=== PATIENT | male | born 1975 | race Caucasian/White ===

== ENCOUNTER 2018-03-27 11:29 | Emergency (ER) | payer OTHER ==
[2018-03-27 11:39] VITALS: TEMP 96.4
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
[2018-03-27 12:45] VITALS: BP 170/102; PULSE 80; RESP 18
[2018-03-27] MEDS ORDERED: cloNIDine HCL 0.1 MG TAB PO STA (12:48)
== END 2018-03-27 13:14 | disposition home or self-care (01) ==
LOC: EC 11:29
DX: M54.2 Cervicalgia (principal); M25.512 Pain in left shoulder; J45.909 Unspecified asthma, uncomplicated; Z79.899 Other long term (current) drug therapy; Z88.6 Allergy status to analgesic agent; Z91.018 Allergy to other foods; V89.2XXA Person injured in unspecified motor-vehicle accident, traffic, initial encounter; Y92.410 Unspecified street and highway as the place of occurrence of the external cause
CPT/HCPCS: 72050; 99284

== ENCOUNTER → 2018-05-21 | Outpatient (CLI) | payer OTHER ==
--- NOTE | 2018-05-21 09:53 | XR ---
EXAMINATION TYPE: XR chest 2V DATE OF EXAM: 05/21/2018 COMPARISON: 04/25/15 HISTORY: Chest pain TECHNIQUE: Single frontal view of the chest is obtained. FINDINGS: There is no focal air space opacity, pleural effusion, or pneumothorax seen. The cardiac silhouette size is within normal limits. The osseous structures are intact. IMPRESSION: 1. No acute process.
== END | disposition home or self-care (01) ==
LOC: RADXRMAIN 09:17
PROVIDERS: ATTEND Family Medicine
DX: Z11.1 Encounter for screening for respiratory tuberculosis (principal)
CPT/HCPCS: 71046

== ENCOUNTER 2019-04-05 21:52 | Emergency (ER) | payer OTHER ==
[2019-04-05 21:57] VITALS: RESP 18
[2019-04-05] MEDS ORDERED: DIAZEPAM 5 MG/ML 2 ML INJ IM STA (22:46)
[2019-04-05] MEDS ORDERED: ACET/COD 300 MG/30 MG STARTER PACK 6 TAB BTL PO STA (22:48)
[2019-04-05] MEDS ORDERED: LIDOCAINE 5% PATCH TOPICAL STA (22:49)
--- NOTE | 2019-04-05 23:50 | ED ---
Back Pain HPI - General Source: patient Limitations: no limitations <Bhavin Ramirez - Last Filed: 04/09/19 13:40> <Joann Villalta - Last Filed: 04/11/19 05:43> - General Chief Complaint: Back Pain/Injury Stated Complaint: Back Pain Time Seen by Provider: 04/05/19 22:17 - History of Present Illness Initial Comments: Patient is a 44-year-old male presents emergency Department with lower back pain. Patient reports the pain started earlier today while he was a work. Patient reports the pain is acute and rates it a 7. Patient states the pain starts in the right lumbosacral region and radiates along the posterior aspect of the right leg to the popliteal region. Patient reports the pain is alleviated and sitting position exacerbated with any movement. Patient denies urinary incontinence or saddle paresthesias. Patient reports a previous history of back pain but this time is more severe. Patient denies taking medication to alleviate the pain. Patient denies syncope, lightheadedness, dizziness, nausea, vomiting, abdominal pain, chest pain or chest tightness. (Bhavin Ramirez) - Related Data Home Medications Medication Instructions Recorded Confirmed Azelastine HCl [Astepro] 1 spray EA NOSTRIL BID 07/17/16 07/31/16 Acetaminophen [Tylenol] 325 - 650 mg PO ONCE PRN 07/18/16 07/31/16 Previous Rx's Medication Instructions Recorded Acetaminophen [Tylenol] 500 mg PO Q4-6H PRN #20 tab 03/27/18 Lisinopril [Zestril] 5 mg PO DAILY #30 tab 03/27/18 Cyclobenzaprine [Flexeril] 10 mg PO TID PRN #15 tab 04/05/19 Allergies Allergy/AdvReac Type Severity Reaction Status Date / Time ibuprofen Allergy Rash/Hives, Verified 04/05/19 21:57 Tongue Swelling tomato Allergy Rash/Hives, Verified 04/05/19 21:57 Tongue Swelling Review of Systems ROS Other: All systems not noted in ROS Statement are negative. <Bhavin Ramirez - Last Filed: 04/09/19 13:40> ROS Other: All systems not noted in ROS Statement are negative. <Joann Villalta - Last Filed: 04/11/19 05:43> ROS Statement: Those systems with pertinent positive or pertinent negative responses have been documented in the HPI. Past Medical History Past Medical History: Asthma Additional Past Medical History / Comment(s): TROUBLE SWALLOWING History of Any Multi-Drug Resistant Organisms: None Reported Past Surgical History: Appendectomy, Hernia Repair Additional Past Surgical History / Comment(s): TESTICLE SURGERY, Past Anesthesia/Blood Transfusion Reactions: Postoperative Nausea & Vomiting (PONV) Past Psychological History: No Psychological Hx Reported Smoking Status: Never smoker Past Alcohol Use History: None Reported Past Drug Use History: None Reported - Past Family History Mother Family Medical History: Cancer Additional Family Medical History / Comment(s): "BOWEL CANCER" Father Family Medical History: No Reported History <Bhavin Ramirez Last Filed: 04/09/19 13:40> General Exam Limitations: no limitations General appearance: alert, in no apparent distress Head exam: Present: atraumatic, normocephalic, normal inspection Eye exam: Present: normal appearance, PERRL, EOMI Pupils: Present: normal accommodation ENT exam: Present: normal exam, mucous membranes moist, TM's normal bilaterally, normal external ear exam Neck exam: Present: normal inspection, full ROM Respiratory exam: Present: normal lung sounds bilaterally Cardiovascular Exam: Present: regular rate, normal rhythm, normal heart sounds GI/Abdominal exam: Present: soft. Absent: tenderness, guarding Extremities exam: Present: normal inspection, full ROM Back exam: Present: normal inspection, tenderness (Lumbosacral region), muscle spasm, paraspinal tenderness (Right-sided), other (Positive straight leg raise test.). Absent: full ROM (Limited due to pain), CVA tenderness (R), CVA tenderness (L) Neurological exam: Present: alert, oriented X3 Psychiatric exam: Present: normal affect, normal mood Skin exam: Present: warm, intact, normal color <Bhavin Ramirez Last Filed: 04/09/19 13:40> Course Vital Signs 04/05/19 04/06/19 21:55 01:24 Temperature 98.3 F 97.8 F Pulse Rate 110 H 79 Respiratory 18 18 Rate Blood Pressure 154/87 122/80 O2 Sat by Pulse 95 98 Oximetry Medical Decision Making <Bhavin Ramirez Last Filed: 04/09/19 13:40> <Joann Villalta - Last Filed: 04/11/19 05:43> - Medical Decision Making Patient is a 44-year-old male presents emergency Department with low back pain. Initially the patient was given a Lidoderm patch and 5 g of Valium which helped decrease the pain and increased the range of motion. On reevaluation patient reports the pain and spasms have slightly increased again. Patient was given a Tylenol 3 starter pack, another 5 mg of Valium. Patient will be discharged with Flexeril starter pack and a prescription for Flexeril. Patient advised not to drive or operate heavy machinery when taking the medication. Patient does have a ride home from the ED. Patient reports that he feels better and has increased range of motion. Patient reports that he is ready go home. At this point I suspect patient to have acute mechanical low back pain that could best be treated in outpatient setting. No cauda equina signs. Patient advised to follow-up with orthopedics. Strict return parameters were thoroughly discussed with patient and his were understanding and agreeable. Case discussed with physician. (Bhavin Ramirez) I was available for consultation in the emergency department. The history and physical exam were done by the midlevel provider. I was consulted for this patient's care. I reviewed the case with the midlevel provider and based on their presentation of the patient, I agree with the assessment, medical decision making and plan of care as documented. Chart was dictated using [employer] dictation software. Attempts were made to correct any dictation errors however some typographical errors may persist. (Joann Villalta) Disposition Is patient prescribed a controlled substance at d/c from ED?: No Time of Disposition: 23:49 <Bhavin Ramirez - Last Filed: 04/09/19 13:40> <Joann Villalta - Last Filed: 04/11/19 05:43> Clinical Impression: Mechanical back pain Disposition: HOME SELF-CARE Condition: Stable Instructions (If sedation given, give patient instructions): Acute Low Back Pain (ED) Additional Instructions: Please follow-up with orthopedics. Please return to emergency department if symptoms worsen. Please take prescribed medication as directed. Prescriptions: Cyclobenzaprine [Flexeril] 10 mg PO TID PRN #15 tab PRN Reason: Muscle Spasm Referrals: Brandon Francis MD [Primary Care Provider] - 1-2 days Jeremy Harper MD [Medical Doctor] - 1-2 days
[2019-04-06] MEDS ORDERED: DIAZEPAM 5 MG/ML 2 ML INJ IVP STA (00:55)
[2019-04-06] MEDS ORDERED: CYCLOBENZAPRINE 10MG STARTER 3 TAB BTL PO STA (01:02)
[2019-04-06 01:26] VITALS: BP 122/80; PULSE 79; TEMP 97.8
== END 2019-04-06 01:24 | disposition home or self-care (01) ==
LOC: EC 21:52
DX: M62.830 Muscle spasm of back (principal); M79.604 Pain in right leg; Z88.6 Allergy status to analgesic agent; Z91.018 Allergy to other foods; Z79.899 Other long term (current) drug therapy
CPT/HCPCS: 99283; 96374; 96372; J3360 ×2

== ENCOUNTER 2020-11-16 08:36 | Observation (INO) | payer OTHER ==
--- NOTE | 2020-11-16 09:06 | ED ---
Chest Pain HPI - General Chief Complaint: Chest Pain Stated Complaint: chest pain Time Seen by Provider: 11/16/20 08:47 Source: patient Mode of arrival: wheelchair Limitations: no limitations - History of Present Illness Initial Comments: Patient is a 45-year-old male with past medical history of asthma who presents to the emergency department with reported chest pain. Patient reports that the pain started last night. Located over the right side of his chest with radiation into his right arm. Admits to nausea without vomiting. Also admits to mild shortness of breath. He has had a cough with some hemoptysis. Denies history of DVT or PE. No ripping or tearing station his back. Denies any new numbness or tingling in his upper extremities. No previous history of cardiac disease. 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 No fevers or chills. No other alleviating, precipitating or modifying factors - Related Data Home Medications Medication Instructions Recorded Confirmed guaiFENesin [guaiFENesin Oral 400 mg PO Q6H PRN 11/16/20 11/16/20 Solution] Previous Rx's Medication Instructions Recorded Celecoxib [CeleBREX] 100 mg PO BID #30 cap 11/17/20 Allergies Allergy/AdvReac Type Severity Reaction Status Date / Time ibuprofen Allergy Rash/Hives, Verified 11/16/20 10:03 Tongue Swelling tomato Allergy Rash/Hives, Verified 11/16/20 10:03 Tongue Swelling Review of Systems ROS Statement: Those systems with pertinent positive or pertinent negative responses have been documented in the HPI. ROS Other: All systems not noted in ROS Statement are negative. EKG Findings - EKG Comments: EKG Findings:: EKG demonstrates sinus rhythm with ventricular rate of 83. ME interval 124. QRS 86. QTC of 420. No acute ST segment elevations or depressions Past Medical History Past Medical History: Asthma Additional Past Medical History / Comment(s): TROUBLE SWALLOWING History of Any Multi-Drug Resistant Organisms: None Reported Past Surgical History: Appendectomy, Hernia Repair Additional Past Surgical History / Comment(s): TESTICLE SURGERY, Past Anesthesia/Blood Transfusion Reactions: Postoperative Nausea & Vomiting (PONV) Past Psychological History: No Psychological Hx Reported Smoking Status: Never smoker Past Alcohol Use History: None Reported Past Drug Use History: None Reported - Past Family History Mother Family Medical History: Cancer Additional Family Medical History / Comment(s): "BOWEL CANCER" Father Family Medical History: No Reported History General Exam Limitations: no limitations General appearance: alert, in no apparent distress Head exam: Present: atraumatic, normocephalic, normal inspection Eye exam: Present: normal appearance, PERRL, EOMI. Absent: scleral icterus, conjunctival injection, periorbital swelling ENT exam: Present: normal exam, mucous membranes moist Neck exam: Present: normal inspection. Absent: tenderness, meningismus, lymphadenopathy Respiratory exam: Present: normal lung sounds bilaterally. Absent: respiratory distress, wheezes, rales, rhonchi, stridor Cardiovascular Exam: Present: regular rate, normal rhythm, normal heart sounds. Absent: systolic murmur, diastolic murmur, rubs, gallop, clicks GI/Abdominal exam: Present: soft, normal bowel sounds. Absent: distended, tenderness, guarding, rebound, rigid Extremities exam: Present: normal inspection, full ROM, normal capillary refill. Absent: tenderness, pedal edema, joint swelling, calf tenderness Back exam: Present: normal inspection Neurological exam: Present: alert, oriented X3, CN II-XII intact Psychiatric exam: Present: normal affect, normal mood Skin exam: Present: warm, dry, intact, normal color. Absent: rash Course Vital Signs 11/16/20 11/16/20 11/16/20 08:40 11:00 12:00 Temperature 98.5 F Pulse Rate 94 77 71 Respiratory 18 18 18 Rate Blood Pressure 145/89 142/92 141/93 O2 Sat by Pulse 98 98 99 Oximetry 11/16/20 11/16/20 13:00 14:00 Temperature Pulse Rate 75 82 Respiratory 18 18 Rate Blood Pressure 140/92 O2 Sat by Pulse 98 99 Oximetry Chest Pain MDM - MDM Upon arrival patient is placed into room 7. There are history and physical exam is performed. 12-lead EKG was performed. Laboratory studies were conducted. Patient went for chest x-ray. Laboratory studies are reviewed and demonstrate negative d-dimer. Troponin less than 0.012. Chest x-ray demonstrates no acute cardiopulmonary process. Results are discussed with the patient. Due to the hemoptysis I did offer a CT of the patient's chest however patient wants to hold off at this time. I did recommend hospital physician with cardiology consultation and to trend the patient's troponins for which he did agree to. Spoke with Dr. Francis who agreed to admit the patient. The patient is currently awaiting a bed on the floor. Disposition Clinical Impression: Chest pain, Hemoptysis Disposition: ADMITTED IP TO THIS [facility] Condition: Stable Is patient prescribed a controlled substance at d/c from ED?: No Decision to Admit Reason: Admit from EC Decision Date: 11/16/20 Decision Time: 10:46
[2020-11-16 09:21] LABS: Basophils % (A) 1 %; Eosinophils # (A) 0.1 k/uL (0-0.7); Eosinophils % (A) 2 %; HCT 47.3 % (39.0-53.0); HGB 15.9 gm/dL (13.0-17.5); Lymphocytes # (A) 1.4 k/uL (1.0-4.8); Lymphocytes % (A) 30 %; MCH 28.4 pg (25.0-35.0); MCHC 33.5 g/dL (31.0-37.0); MCV 84.8 fL (80.0-100.0); Mean Platelet Volume 7.6; Monocytes # (A) 0.3 k/uL (0-1.0); Monocytes % (A) 7 %; Neutrophils # (A) 2.6 k/uL (1.3-7.7); Neutrophils % (A) 57 %; Platelet Count 219 k/uL (150-450); RBC 5.58 m/uL (4.30-5.90); RDW 13.6 % (11.5-15.5); WBC 4.6 k/uL (3.8-10.6)
[2020-11-16] MEDS ORDERED: ACETAMINOPHEN TAB 325 MG TAB PO STA (09:21)
[2020-11-16 09:27] LABS: ALT 27 U/L (4-49); AST 23 U/L (17-59); African American GFR (CKD) >90 (>60 ml/min/1.73 sqM); Albumin 4.3 g/dL (3.5-5.0); Alkaline Phosphatase 48 U/L (38-126); Anion Gap 10 mmol/L; Blood Urea Nitrogen 11 mg/dL (9-20); Calcium 9.2 mg/dL (8.4-10.2); Carbon Dioxide 25 mmol/L (22-30); Chloride 102 mmol/L (98-107); Glucose 131 mg/dL (74-99); Lipase 65 U/L (23-300); Magnesium 1.9 mg/dL (1.6-2.3); Non-African American GFR(CKD) >90 (>60 ml/min/1.73 sqM); Sodium 137 mmol/L (137-145); Total Bilirubin 0.7 mg/dL (0.2-1.3); Total Protein 7.5 g/dL (6.3-8.2)
[2020-11-16 09:32] LABS: Partial Thromboplastin Time 23.5 sec (22.0-30.0); Prothrombin Time 10.3 sec (9.0-12.0)
--- NOTE | 2020-11-16 09:41 | XR ---
EXAMINATION TYPE: XR chest 2V DATE OF EXAM: 11/16/2020 COMPARISON: Chest x-ray 05/21/2018 HISTORY: Chest pain TECHNIQUE: Frontal and lateral views of the chest are obtained. FINDINGS: There is no focal air space opacity, pleural effusion, or pneumothorax seen. The cardiac silhouette size is within normal limits. There are overlying cardiac leads. There is eventration of right hemidiaphragm. The osseous structures are intact, stable old left clavicular fracture. IMPRESSION: No acute cardiopulmonary process.
[2020-11-16 09:44] LABS: D-Dimer <0.17 mg/L FEU (<0.60)
[2020-11-16] MEDS ORDERED: ASPIRIN 81 MG PO STA (10:45)
[2020-11-16] MEDS ORDERED: NALOXONE 0.4 MG/ML 1 ML VIAL IV PRN (10:46)
[2020-11-16] MEDS: SODIUM CHLORIDE 0.9% 1,000 ML IV SCH ×2 (11:14→19:55)
--- NOTE | 2020-11-16 13:16 | P.CRDCN ---
History of Present Illness History of present illness: HISTORY OF PRESENTING ILLNESS This is a pleasant 45-year-old male with no significant past medical history. 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 We have been asked to see in consultation for chest pain. He states yesterday he was using a randy to move a washer and dryer when he developed a discomfort in the midsternal region. The pain was described as achy. Later that night he developed a cough and is bringing up blood-tinged sputum. He described it as being "blood". He continues to have discomfort in his chest that is reproducible with deep inspiration and on palpation. DIAGNOSTICS EKG reveals sinus mechanism with no acute ST or T wave abnormalities noted. Chest xray negative for an acute cardiopulmonary process. Laboratory reviewed, CBC unremarkable, d-dimer negative, sodium 137, potassium 4.0, creatinine 0.83, magnesium 1.9, troponin negative 1. He takes no daily cardiac medications. REVIEW OF SYSTEMS At the time of my exam: CONSTITUTIONAL: Denies fever or chills. CARDIOVASCULAR: Complains of chest pain with movement or breathing. Denies shortness of breath, orthopnea, PND or palpitations. RESPIRATORY: Complains of cough. GASTROINTESTINAL: Denies abdominal pain, diarrhea, constipation, nausea or vomiting. MUSCULOSKELETAL: Denies myalgias. NEUROLOGIC: Denies numbness, tingling, headacbe or weakness. ENDOCRINE: Denies fatigue, weight change, polydipsia or polyurina. GENITOURINARY: Denies burning, hematuria or urgency with micturation. HEMATOLOGIC: Denies history of anemia or bleeding. PHYSICAL EXAMINATION Blood pressure 141/93 heart rate 71 afebrile and maintaining oxygen saturation on room air. CONSTITUTIONAL: No apparent distress. HEENT: Head is normocephalic. Pupils are equal, round. Sclerae anicteric. Mucous membranes of the mouth are moist. No JVD. No carotid bruit. CHEST EXAMINATION: Lungs are clear to auscultation. Midsternal chest wall tenderness is noted on palpation and with deep breathing. HEART EXAMINATION: Regular rate and rhythm. S1, S2 heard. No murmurs, gallops or rub. ABDOMEN: Soft, nontender. Positive bowel sounds. EXTREMITIES: 2+ peripheral pulses, no lower extremity edema and no calf tenderness. NEUROLOGIC EXAMINATION: Patient is awake, alert and oriented x3. ASSESSMENT Chest pain, reproducible PLAN Pain is reproducible and exam, seems to be possibly related to musculoskeletal strain from moving washer and dryer yesterday. Obtain 2-D echocardiogram and Doppler study to assess cardiac structure and function. Thank you kindly for this consultation. Nurse Practitioner note has been reviewed, I agree with a documented findings and plan of care. Patient was seen and examined. Past Medical History Past Medical History: Asthma Additional Past Medical History / Comment(s): TROUBLE SWALLOWING History of Any Multi-Drug Resistant Organisms: None Reported Past Surgical History: Appendectomy, Hernia Repair Additional Past Surgical History / Comment(s): TESTICLE SURGERY, Past Anesthesia/Blood Transfusion Reactions: Postoperative Nausea & Vomiting (PONV) Past Psychological History: No Psychological Hx Reported Smoking Status: Never smoker Past Alcohol Use History: None Reported Past Drug Use History: None Reported - Past Family History Mother Family Medical History: Cancer Additional Family Medical History / Comment(s): "BOWEL CANCER" Father Family Medical History: No Reported History Medications and Allergies Home Medications Medication Instructions Recorded Confirmed Type guaiFENesin [guaiFENesin Oral 400 mg PO Q6H PRN 11/16/20 11/16/20 History Solution] Allergies Allergy/AdvReac Type Severity Reaction Status Date / Time ibuprofen Allergy Rash/Hives, Verified 11/16/20 10:03 Tongue Swelling tomato Allergy Rash/Hives, Verified 11/16/20 10:03 Tongue Swelling Physical Exam Vitals: Vital Signs Temp Pulse Resp BP Pulse Ox 11/16/20 12:00 71 18 141/93 99 11/16/20 11:00 77 18 142/92 98 11/16/20 08:40 98.5 F 94 18 145/89 98 Intake and Output 11/15/20 11/16/20 11/16/20 22:59 06:59 14:59 Other: Weight 127.006 kg Results 11/16/20 08:53 11/16/20 08:53 Cardiac Enzymes 11/16/20 11/16/20 Range/Units 08:53 08:53 AST 23 (17-59) U/L Troponin I <0.012 (0.000-0.034) ng/mL Coagulation 11/16/20 Range/Units 08:53 PT 10.3 (9.0-12.0) sec APTT 23.5 (22.0-30.0) sec CBC 11/16/20 Range/Units 08:53 WBC 4.6 (3.8-10.6) k/uL RBC 5.58 (4.30-5.90) m/uL Hgb 15.9 (13.0-17.5) gm/dL Hct 47.3 (39.0-53.0) % Plt Count 219 (150-450) k/uL Comprehensive Metabolic Panel 11/16/20 Range/Units 08:53 Sodium 137 (137-145) mmol/L Potassium 4.0 (3.5-5.1) mmol/L Chloride 102 (98-107) mmol/L Carbon Dioxide 25 (22-30) mmol/L BUN 11 (9-20) mg/dL Creatinine 0.83 (0.66-1.25) mg/dL Glucose 131 H (74-99) mg/dL Calcium 9.2 (8.4-10.2) mg/dL AST 23 (17-59) U/L ALT 27 (4-49) U/L Alkaline Phosphatase 48 (38-126) U/L Total Protein 7.5 (6.3-8.2) g/dL Albumin 4.3 (3.5-5.0) g/dL Current Medications Generic Name Dose Route Start Last Admin Trade Name Freq PRN Reason Stop Dose Admin Sodium Chloride 1,000 mls @ 100 mls/hr 11/16/20 11:00 11/16/20 11:14 Saline 0.9% IV 100 mls/hr .Q10H PRASANTH Administration Naloxone HCl 0.2 mg 11/16/20 10:46 Naloxone 0.4 Mg/Ml 1 Ml Vial IV Q2M PRN Opioid Reversal Intake and Output 11/15/20 11/16/20 11/16/20 22:59 06:59 14:59 Other: Weight 127.006 kg Patient Weight 11/17/20 06:59 Weight 127.006 kg 11/16/20 08:53 11/16/20 08:53
[2020-11-16] MEDS ORDERED: MORPHINE SULFATE 2 MG/ML SYRINGE IM PRN (19:43)
[2020-11-16] MEDS ORDERED: NITROGLYCERIN SL TABS 0.4 MG TAB SUBLINGUAL PRN (19:45)
[2020-11-16] MEDS: traMADol 50 MG TAB PO PRN (19:54)
[2020-11-17] MEDS: traMADol 50 MG TAB PO PRN (06:10)
[2020-11-17] MEDS: SODIUM CHLORIDE 0.9% 1,000 ML IV SCH (06:10)
--- NOTE | 2020-11-17 08:30 | P.HPIM ---
History of Present Illness H&P Date: 11/17/20 Chief Complaint: Chest pain. This is a history of physical and a 45-year-old white male with no previous history of CAD who complained of substernal chest pressure. There is radiation to the right shoulder but no diaphoresis. No nausea stated. Cardiology has been consulted enzymatic elevation is not found echocardiogram is pending. No family history of premature heart disease Review of Systems Constitutional: Denies chills, Denies fever Eyes: denies blurred vision, denies pain Ears, nose, mouth and throat: Denies headache, Denies sore throat Cardiovascular: Reports chest pain, Denies leg edema, Denies shortness of breath Respiratory: Denies cough Musculoskeletal: Denies myalgias Past Medical History Past Medical History: Asthma Additional Past Medical History / Comment(s): TROUBLE SWALLOWING History of Any Multi-Drug Resistant Organisms: None Reported Past Surgical History: Appendectomy, Hernia Repair Additional Past Surgical History / Comment(s): TESTICLE SURGERY, Past Anesthesia/Blood Transfusion Reactions: Postoperative Nausea & Vomiting (PONV) Past Psychological History: No Psychological Hx Reported Smoking Status: Never smoker Past Alcohol Use History: None Reported Additional Past Alcohol Use History / Comment(s): QUIT DRINKING ALCOHOL IN 2004- ALCOHOLISM Past Drug Use History: None Reported - Past Family History Mother Family Medical History: Cancer Additional Family Medical History / Comment(s): "BOWEL CANCER" Father Family Medical History: No Reported History Medications and Allergies Home Medications Medication Instructions Recorded Confirmed Type guaiFENesin [guaiFENesin Oral 400 mg PO Q6H PRN 11/16/20 11/16/20 History Solution] Allergies Allergy/AdvReac Type Severity Reaction Status Date / Time ibuprofen Allergy Rash/Hives, Verified 11/16/20 10:03 Tongue Swelling tomato Allergy Rash/Hives, Verified 11/16/20 10:03 Tongue Swelling Physical Exam Vitals: Vital Signs Temp Pulse Pulse Resp BP BP Pulse Ox 11/17/20 02:31 98.1 F 68 15 127/82 96 11/16/20 19:17 98.4 F 83 16 149/91 97 11/16/20 17:10 98.4 F 79 17 158/79 97 11/16/20 14:00 82 18 99 11/16/20 13:00 75 18 140/92 98 11/16/20 12:00 71 18 141/93 99 02/11/21 11:00 77 18 142/92 98 11/16/20 08:40 98.5 F 94 18 145/89 98 Intake and Output 11/16/20 11/17/20 11/17/20 22:59 06:59 14:59 Intake Total 540 Balance 540 Intake: Oral 540 Other: # Voids 3 Weight 127.006 kg - Constitutional General appearance: no acute distress - EENT Eyes: EOMI - Neck Neck: no lymphadenopathy - Respiratory Respiratory: bilateral: CTA - Gastrointestinal General gastrointestinal: no organomegaly, soft, no tenderness - Psychiatric Psychiatric: A&O x's 3, appropriate affect, intact judgment & insight Results CBC & Chem 7: 11/16/20 08:53 11/16/20 08:53 Labs: Abnormal Lab Results - Last 24 Hours (Table) 11/16/20 Range/Units 08:53 Glucose 131 H (74-99) mg/dL Thrombosis Risk Factor Assmnt - Choose All That Apply Each Factor Represents 1 point: Age 41-60 years Other Risk Factors: No Other congenital or acquired thrombophilia - If yes, enter type in comment: No Thrombosis Risk Factor Assessment Total Risk Factor Score: 1 Thrombosis Risk Factor Assessment Level: Low Risk Assessment and Plan (1) Chest pain Current Visit: Yes Status: Acute Code(s): R07.9 - CHEST PAIN, UNSPECIFIED SNOMED Code(s): 89521367 Plan: Rule out myocardial infarction. Appreciate cardiology input. If testing today is negative, anticipate DC to home. See orders otherwise.
[2020-11-17 09:18] LABS: Basophils # (A) 0.05 X 10*3/uL (0.00-0.10); Basophils % (A) 1.1 %; Eosinophils % (A) 2.2 %; HCT 45.7 % (39.6-50.0); HGB 14.8 g/dL (13.0-17.0); Lymphocytes # (A) 1.91 X 10*3/uL (0.90-5.00); Lymphocytes % (A) 42.6 %; MCH 28.4 pg (27.0-32.0); MCHC 32.4 g/dL (32.0-37.0); MCV 87.5 fL (80.0-97.0); Mean Platelet Volume 10.6 fL (9.5-12.2); Monocytes # (A) 0.43 X 10*3/uL (0.20-1.00); Monocytes % (A) 9.6 %; Neutrophils # (A) 1.98 X 10*3/uL (1.80-7.70); Neutrophils % (A) 44.3 %; Platelet Count 207 X 10*3/uL (140-440); RBC 5.22 X 10*6/uL (4.40-5.60); RDW 13.2 % (11.5-14.5); WBC 4.48 X 10*3/uL (4.50-10.00)
[2020-11-17 09:37] VITALS: BP 128/86; PULSE 70; RESP 16; TEMP 98.2
[2020-11-17] MEDS ORDERED: ACETAMINOPHEN TAB 325 MG TAB PO STA (09:41)
--- NOTE | 2020-11-17 10:32 | ECHOF ---
Referral Reason:cp MEASUREMENTS -------- HEIGHT: 182.9 cm WEIGHT: 127.0 kg BP: 127/82 RVIDd: 3.4 cm (< 3.3) IVSd: 1.4 cm (0.6 - 1.1) LVIDd: 4.6 cm (3.9 - 5.3) LVPWd: 1.4 cm (0.6 - 1.1) IVSs: 1.7 cm LVIDs: 3.4 cm LVPWs: 1.6 cm LAESV Index (A-L): 21.83 ml/m Ao Diam: 3.0 cm (2.0 - 3.7) AV Cusp: 1.9 cm (1.5 - 2.6) LA Diam: 4.4 cm (2.7 - 3.8) MV EXCURSION: 21.866 mm (> 18.000) MV EF SLOPE: 113 mm/s (70 - 150) EPSS: 0.7 cm MV E Sadi: 0.62 m/s MV DecT: 184 ms MV A Sadi: 0.66 m/s MV E/A Ratio: 0.93 RAP: 5.00 mmHg RVSP: 19.32 mmHg FINDINGS -------- Sinus rhythm. This was a technically adequate study. The left ventricular size is normal. There is mild concentric left ventricular hypertrophy. Overa ll left ventricular systolic function is normal with, an EF between 55 - 60 %. The diastolic fillin g pattern is normal for the age of the patient 7.62. The right ventricle is normal in size. Normal LA size by volume 22+/-6 ml/m2. The right atrial size is normal. The aortic valve is trileaflet, and appears structurally normal. No aortic stenosis or regurgitation. The mitral valve is normal. There is trace to mild mitral regurgitation. The tricuspid valve appears structurally normal. Trace tricuspid regurgitation present. Right royce tricular systolic pressure is normal at < 35 mmHg. There is no pulmonic regurgitation present. The aortic root size is normal. There is no pericardial effusion. CONCLUSIONS -------- 1. There is mild concentric left ventricular hypertrophy. 2. Overall left ventricular systolic function is normal with, an EF between 55 - 60 %. 3. Normal LA size by volume 22+/-6 ml/m2. 4. The aortic valve is trileaflet, and appears structurally normal. No aortic stenosis or regurgitati on. 5. There is trace to mild mitral regurgitation. 6. Trace tricuspid regurgitation present. 7. There is no pericardial effusion. CAR PICK UP DRIVER: Cate Jimenes RDCS
--- NOTE | 2020-11-17 10:54 | P.PN ---
Subjective HISTORY OF PRESENTING ILLNESS This is a pleasant 45-year-old male with no significant past medical history. He denies prior history of coronary artery disease and does not follow in the office with a assistant hall director. He is seen and examined resting comfortably in bed in no acute distress. He continues to have chest pain in the mid-sternal region that is reproducible with movement and deep breathing or coughing. Blood pressure 128/86 heart rate 70 afebrile maintaining oxygen saturation on room air. Echocardiogram obtained reveals preserved LV systolic function with ejection fraction 55-60% there is no pericardial effusion. PHYSICAL EXAMINATION CONSTITUTIONAL: No apparent distress. HEENT: Head is normocephalic. Pupils are equal, round. Sclerae anicteric. Mucous membranes of the mouth are moist. No JVD. No carotid bruit. CHEST EXAMINATION: Lungs are clear to auscultation. Midsternal chest wall tenderness is noted on palpation and with deep breathing. HEART EXAMINATION: Regular rate and rhythm. S1, S2 heard. No murmurs, gallops or rub. EXTREMITIES: 2+ peripheral pulses, no lower extremity edema and no calf tenderness. ASSESSMENT Chest pain, reproducible PLAN Stable for discharge from a cardiac perspective. Recommend anti-inflammatory pain medication as the patient can tolerate. Nurse Practitioner note has been reviewed, I agree with a documented findings and plan of care. Patient was seen and examined. Objective - Vital Signs Vital signs: Vital Signs Temp 98.2 F 11/17/20 09:30 Pulse 70 11/17/20 09:39 Resp 16 11/17/20 09:39 BP 128/86 11/17/20 09:30 Pulse Ox 96 11/17/20 09:30 Intake & Output 11/16/20 11/17/20 11/17/20 18:59 06:59 18:59 Intake Total 540 Balance 540 Weight 127.006 kg Intake: Oral 540 Other: Voiding Method Toilet # Voids 3 - Labs CBC & Chem 7: 11/17/20 05:48 11/16/20 08:53 Labs: Abnormal Lab Results - Last 24 Hours (Table) 11/17/20 Range/Units 05:48 WBC 4.48 L (4.50-10.00) X 10*3/uL
[2020-11-17 11:07] LABS: African American GFR (CKD) 120.8 (60.0-200.0); Anion Gap 8.9 mmol/L (4.00-12.00); BUN/Creat Ratio 16.67 Ratio (12.00-20.00); Calcium 8.7 mg/dL (8.7-10.3); Carbon Dioxide 24.1 mmol/L (21.6-31.8); Non-African American GFR(CKD) 104.2 (60.0-200.0); Potassium 4.5 mmol/L (3.5-5.5)
== END 2020-11-17 16:19 | disposition home or self-care (01) ==
LOC: EC 08:36 → 6NMEDSUR 10:46
PROVIDERS: ADMIT Family Medicine; ATTEND Family Medicine
DX: R07.89 Other chest pain (principal); R04.2 Hemoptysis; J45.909 Unspecified asthma, uncomplicated; R11.0 Nausea; R13.10 Dysphagia, unspecified; Z79.899 Other long term (current) drug therapy; Z88.6 Allergy status to analgesic agent; Z91.018 Allergy to other foods; Z90.49 Acquired absence of other specified parts of digestive tract; Z98.890 Other specified postprocedural states; Z87.81 Personal history of (healed) traumatic fracture; Z80.0 Family history of malignant neoplasm of digestive organs
CPT/HCPCS: 93005 ×2; 99285; 36415; 93306; 85379; 80053; 80048; 83690; 83735; 84484; 85025 ×2; 85610; 85730; 87635; 71046; G0378 ×2

== ENCOUNTER 2022-01-17 08:49 | Day surgery (SDC) | payer BC, OTHER ==
[2022-01-15 15:02] VITALS: BMI 49.4
[~2022-01-17 08:49] MED LIST: LACTATED RINGERS 1,000 ML IV SCH; LIDOCAINE 1% (10MG/ML) FOR IV START INTRADERMA PRN
[2022-01-17 09:28] VITALS: TEMP 98.1
[2022-01-17] MEDS ORDERED: LACTATED RINGERS 1,000 ML IV ONE (09:36)
[2022-01-17] MEDS ORDERED: PROPOFOL 10 MG/ML 20 ML VIAL IV ONE (09:49)
--- NOTE | 2022-01-17 09:52 | P.GSHP ---
History of Present Illness H&P Date: 01/17/22 Chief Complaint: Family history of colon Cancer This a 46-year-old male presents today for colonoscopy. Patient has a strong family history of colon cancer his mother had colon cancer. Patient denies a significant GI complaints. 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 Past Drug Use History: None Reported - Past Family History Mother Family Medical History: Cancer Additional Family Medical History / Comment(s): "BOWEL CANCER" Father Family Medical History: No Reported History Medications and Allergies Home Medications Medication Instructions Recorded Confirmed Type No Known Home Medications 01/15/22 01/15/22 History Allergies Allergy/AdvReac Type Severity Reaction Status Date / Time ibuprofen Allergy Rash/Hives, Verified 01/17/22 09:18 Tongue Swelling tomato Allergy Rash/Hives, Verified 01/17/22 09:18 Tongue Swelling Surgical - Exam Vital Signs Temp Pulse Resp BP Pulse Ox 98.1 F 92 20 152/86 95 01/17/22 09:27 01/17/22 09:27 01/17/22 09:27 01/17/22 09:27 01/17/22 09:27 - General well developed, well nourished, no distress - Eyes PERRL - ENT normal pinna - Neck no masses - Respiratory normal expansion - Cardiovascular Rhythm: regular - Abdomen Abdomen: soft, non tender Assessment and Plan Assessment: History of colon cancer. We'll perform colonoscopy.
--- NOTE | 2022-01-17 10:10 | P.OP ---
Date of Procedure: 01/17/22 Preoperative Diagnosis: Family history of colon cancer Postoperative Diagnosis: Colon polyps pathology pending Procedure(s) Performed: Colonoscopy Anesthesia: MAC Surgeon: Stanford Martínez Pathology: other (Left and right colon polyp) Condition: stable Disposition: PACU Description of Procedure: The patient's placed on the endoscopy table in the lateral position. He received IV sedation. Digital rectal exam was performed. This revealed no abnormalities. The flexible colonoscope was then placed in patient's anus and passed throughout the entire colon. The ileocecal valve was visualized. The cecum appeared normal. In the ascending colon there was a small polyp seen. Through the cold forcep. Scope withdrawn and the transverse colon appeared normal. In the descending colon another small polyp was seen. This removed with a cold forcep. Scope back the sigmoid colon this appeared normal. Scope withdrawn into the rectum and this was normal. Scope withdrawn for patient.
[2022-01-17 11:02] VITALS: RESP 16
[2022-01-17 11:04] VITALS: BP 135/77; PULSE 92
== END 2022-01-17 11:01 | disposition home or self-care (01) ==
LOC: ORWHC2ENDO 08:49
PROVIDERS: ATTEND Surgery
DX: Z12.11 Encounter for screening for malignant neoplasm of colon (principal); D12.2 Benign neoplasm of ascending colon; D12.4 Benign neoplasm of descending colon; Z80.0 Family history of malignant neoplasm of digestive organs; J45.909 Unspecified asthma, uncomplicated; G43.909 Migraine, unspecified, not intractable, without status migrainosus; R76.11 Nonspecific reaction to tuberculin skin test without active tuberculosis; Z90.49 Acquired absence of other specified parts of digestive tract; Z98.890 Other specified postprocedural states; Z88.8 Allergy status to other drugs, medicaments and biological substances; Z91.018 Allergy to other foods
CPT/HCPCS: 88305; 45380; J2704

== ENCOUNTER → 2023-12-11 | Outpatient (CLI) | payer BC | END | disposition home or self-care (01) | LOC: LABWHC1 10:32 | PROVIDERS: ATTEND Pathology Anatomic Pathology & Clinical Pathology | DX: Z53.9 Procedure and treatment not carried out, unspecified reason (principal) ==